=== PATIENT | female | born 1930 | race Caucasian/White ===

== ENCOUNTER → 2016-11-06 | Outpatient (CLI) | payer BC ==
[~2016-11-06] MED LIST: ACET-1311 PO; AMLO-110 PO; ASPCH81X PO; CALC500C70 PO; CARV3.122 PO; ETAN50IN2 SQ; ETAN50IN3 SQ; FLV1; FRS/40 PO; IBUP1CAP9 PO; IRBE1TAB48 PO; METH2.5T; MULT-845; SIMV10TA2 PO; TRAM-10 PO
--- NOTE | 2016-11-06 16:02 | MAMMOGRAPHY REPORT ---
BILATERAL DIGITAL SCREENING MAMMOGRAM WITH CAD: 11/06/2016 CLINICAL HISTORY: Routine screening. Patient has no complaints. TECHNIQUE: Bilateral CC and MLO views were obtained. Current study was also evaluated with a Compute r Aided Detection (CAD) system. COMPARISON: Comparison is made to exams dated: 10/27/2014 mammogram, 11/03/2015 mammogram, 09/15/2013 ma mmogram, 09/12/2012 mammogram, 09/11/2011 mammogram, and 09/05/2010 mammogram - [facility] er. BREAST COMPOSITION: There are scattered areas of fibroglandular density in both breasts. FINDINGS: There are mild vascular calcifications in both breasts. No suspicious mass, architectural distortion or cluster of microcalcifications is seen. IMPRESSION: ACR BI-RADS CATEGORY 2: BENIGN There is no mammographic evidence of malignancy. A 1 year screening mammogram is recommended. The pa tient will receive written notification of the results. Approximately 10% of breast cancers are not detected with mammography. A negative mammographic report should not delay biopsy if a clinically suggestive mass is present. Madhuri Klein M.D. ay/:11/06/2016 15:53:24 Refrigeration Service Inspector: Mabel LUCIA(R)(M), [facility] letter sent: Normal 1/2 BI-RADS Code: ACR BI-RADS Category 2: Benign
== END | disposition home or self-care (01) ==
LOC: C.MAMM 11:16
PROVIDERS: ATTEND Obstetrics & Gynecology
DX: Z12.31 Encounter for screening mammogram for malignant neoplasm of breast (principal)

== ENCOUNTER 2016-12-06 22:03 | Emergency (ER) | payer BC ==
[~2016-12-06] VITALS: Ht 167.6 cm; Wt 82.0 kg
[~2016-12-06 22:03] MED LIST changes: -ETAN50IN3 SQ; -IBUP1CAP9 PO
[2016-12-06 22:10] VITALS: TEMP 36.9; Ht 167.6 cm; Wt 82.0 kg
[2016-12-06] MEDS ORDERED: IBUP1CAP9 PO (22:21)
[2016-12-06] MEDS ORDERED: ETAN50IN3 SQ (22:21)
--- NOTE | 2016-12-06 22:29 | EMERGENCY ROOM VISIT NOTE ---
History Report prepared by Lisa: Nishi Choi Under the Supervision of: Dr. Lasha Moya M.D. First contact with patient: 22:17 Chief Complaint: FALL Stated Complaint: FALL/ LF KNEE & RT ELBOW PAIN History of Present Illness The patient is a 86 year old female who presents to the Emergency Room with complaints of an episode of a fall beginning just [employer]. The patient states that she was walking and her left knee gave out and she fell to the floor in her house. She reports that her knee sometimes gives out but it has never been this severe. She complains of severe left knee swelling and pain, a left elbow cut and left sided rib pain. The patient denies any new hip pain, head pain, shortness of breath, abdominal pain, new back pain, and loss of consciousness. She notes a history of rheumatoid arthritis and states that she takes 81mg aspirin a day but is not on any other blood thinners. She reports that she had an aortic valve replacement previously. Source of History: patient Onset: just [employer] Position: other (global) Quality: other (fall) Timing: constant Associated Symptoms: No LOC, No SOB, No abdominal pain, No back pain Note: Pt complains of left knee pain and swelling, left rib pain, and left elbow pain. The patient denies any new hip pain, head pain. Review of Systems See HPI for pertinent positives & negatives. A total of 10 systems reviewed and were otherwise negative. Past Medical & Surgical Medical Problems: (1) Rheumatoid aortitis Surgical Problems: (1) Aortic valve replaced Family History No pertinent family history stated. Social History Smoking Status: Never Smoker Marital Status: Housing Status: lives alone Occupation Status: retired Current/Historical Medications Scheduled Amlodipine (Norvasc), 5 MG PO DAILY Aspirin (Aspirin Chewable), 81 MG PO DAILY Calcium/Vitamin D (Os-Sourav 500 Plus D), 1 TAB PO BID Carvedilol (Coreg), 3.125 MG PO BID Etanercept (Enbrel Sureclick), 50 MG SQ WK Folic Acid (Folic Acid), 1 MG DAILY Ibuprofen (Ibuprofen), 200 MG PO QAM Irbesartan (Irbesartan), 150 MG PO DAILY Methotrexate (Methotrexate), 7.5 MG WK Multiple Vitamins W/ Minerals (Centrum Silver Adult 50+), DAILY Simvastatin (Zocor), 10 MG PO HS Scheduled PRN Furosemide (Lasix), 40 MG PO for EDEMA Allergies Coded Allergies: Penicillins (Unverified Allergy, Mild, rash, 12/06/16) Meperidine (Unverified Allergy, Unknown, ., 12/06/16) Rofecoxib (Unverified Allergy, Unknown, ., 12/06/16) Physical Exam Vital Signs Date Time Temp Pulse Resp B/P (MAP) Pulse Ox O2 Delivery O2 Flow Rate FiO2 12/07/16 02:10 71 18 156/96 99 Room Air 12/07/16 00:10 70 18 147/84 97 Room Air 12/06/16 22:10 36.9 72 18 165/88 94 Room Air Physical Exam GENERAL: Patient is well appearing and in no acute distress. HEENT: No acute trauma, normocephalic atraumatic, mucous membranes moist, no nasal congestion, no scleral icterus. NECK: No stridor, no adenopathy, no meningismus, trachea is midline. LUNGS: No dyspnea. Clear to auscultation and equal bilaterally. No wheeze, no rhonchi. HEART: Regular rate and rhythm. No rubs, gallops appreciated. Systolic Murmur appreciated. ABDOMEN: Soft, nontender, bowel sounds positive, no masses appreciated, no peritonitis. BACK: No midline tenderness, no CVA tenderness EXTREMITIES: Extensive swelling of the left anterior knee extending to mid left mathews, tender to palpation not consistent with compartment syndrome at this time , distal N/V intact, mild pain with ROM of left knee, skin tare of left olecranon with contusion and bruising, mild pain with ROM of left elbow. NEUROLOGIC: Alert and oriented, no acute motor or sensory deficits, no focal weakness, cranial nerves grossly intact. SKIN: No rash, no jaundice, no diaphoresis. Medical Decision & Procedures ER Provider Diagnostic Interpretation: X ray results are stated below per my interpretation. Elbow X-Ray: Degenerative changes, questionable lucency through distal medial humerus in single view, otherwise no fracture no dislocation. Left Knee X-Ray 2-View: Severe degenerative changes, no fracture, no dislocation. Tibia/Fibula X-Ray 2 View: Severe degenerative changes, no fracture, no dislocation. Laboratory Results 12/07/16 00:30 Red Blood Count 3.53, Mean Corpuscular Volume 95.8, Mean Corpuscular Hemoglobin 31.7, Mean Corpuscular Hemoglobin Concent 33.1, Mean Platelet Volume 10.5, Neutrophils (%) (Auto) 71.8, Lymphocytes (%) (Auto) 16.9, Monocytes (%) (Auto) 8.3, Eosinophils (%) (Auto) 2.5, Basophils (%) (Auto) 0.5, Neutrophils # (Auto) 5.63, Lymphocytes # (Auto) 1.33, Monocytes # (Auto) 0.65, Eosinophils # (Auto) 0.20, Basophils # (Auto) 0.04 12/07/16 00:30 Test 12/07/16 00:30 White Blood Count 7.85 K/uL (4.8-10.8) Red Blood Count 3.53 M/uL (4.2-5.4) Hemoglobin 11.2 g/dL (12.0-16.0) Hematocrit 33.8 % (37-47) Mean Corpuscular Volume 95.8 fL (80-100) Mean Corpuscular Hemoglobin 31.7 pg (25-34) Mean Corpuscular Hemoglobin Concent 33.1 g/dl (32-36) Platelet Count 196 K/uL (130-400) Mean Platelet Volume 10.5 fL (7.4-10.4) Neutrophils (%) (Auto) 71.8 % Lymphocytes (%) (Auto) 16.9 % Monocytes (%) (Auto) 8.3 % Eosinophils (%) (Auto) 2.5 % Basophils (%) (Auto) 0.5 % Neutrophils # (Auto) 5.63 K/uL (1.4-6.5) Lymphocytes # (Auto) 1.33 K/uL (1.2-3.4) Monocytes # (Auto) 0.65 K/uL (0.11-0.59) Eosinophils # (Auto) 0.20 K/uL (0-0.5) Basophils # (Auto) 0.04 K/uL (0-0.2) RDW Standard Deviation 47.3 fL (36.4-46.3) RDW Coefficient of Variation 13.8 % (11.5-14.5) Immature Granulocyte % (Auto) 0.0 % Immature Granulocyte # (Auto) 0.00 K/uL (0.00-0.02) Prothrombin Time 10.4 SECONDS (9.0-12.0) Prothromb Time International Ratio 1.0 (0.9-1.1) Activated Partial Thromboplast Time 27.4 SECONDS (21.0-31.0) Partial Thromboplastin Ratio 1.1 Anion Gap 6.0 mmol/L (3-11) Est Creatinine Clear Calc Drug Dose 58.7 ml/min Estimated GFR () 82.2 Estimated GFR (Non- 70.9 BUN/Creatinine Ratio 38.1 (10-20) Calcium Level 9.0 mg/dl (8.5-10.1) Total Creatine Kinase 48 U/L (26-192) Laboratory results as reviewed by me. Medications Administered Medications (Trade) Dose Ordered Sig/Bob Route Start Time Stop Time Status Last Admin Dose Admin Diphtheria/ Pertussis/Tetanus Vacc (Adacel Inj) 0.5 ml ONCE ONCE IM. 12/07/16 00:00 12/07/16 00:01 DC 12/07/16 00:33 0.5 ML ED Course 2217: The patient was evaluated in room C8. A complete history and physical exam was performed. 2358: I reevaluated the patient. Her hematoma has increased in size and it is more tender and painful. She is not able to move the knee and it is better with elevation. We had an extensive discussion about monitoring in hospital as there is concern for compartments syndrome. She has requested to go home but realized she cannot walk. She cannot remember when her last tetanus shot was but believes it was greater than 10 years ago. 0000: Adacel Inj 0.5ml IM. 0012: Discussed the patient's case with Dr. Wetzel. He is in agreement with the treatment plan and will evaluate the patient in the morning. 0130: Discussed the patient's case with Dr. Gonsalez of [facility]. The patient will be evaluated for further treatment and disposition. 0134: Upon reevaluation, the patient is doing well. Discussed results and treatment plan with the patient. She verbalized understanding and agreement with the treatment plan. The patient will be evaluated for further management. Medical Decision Medication Reconciliation: I attest that I have personally reviewed the patient 's current medication list. Blood pressure screening: Patient was found to have an elevated blood pressure likely due to the situation and was referred to their primary doctor for recheck and further treatment. 86 yr old female arrives following mechanical fall on to right knee. Moderate swelling thus imaging ordered. While here swelling increasing with increased pain. Improved with raising leg. Not yet to compartment syndrome but given increasing swelling I am concerned this may worsen. Not anatomically consistent with large arterial injury. Distal N/V is intact as well. HgB stable. She is essentially unable to ambulate given knee injury. She needs to have repeat knee evaluations to make sure does not develop in to compartment syndrome. She is willing to stay for further monitoring/observation. Declining pain meds as she gets very confused and constipated on them. After several hours in ed with leg elevated patient notes she is now able to ambulate to bathroom. Swelling improved. She very much wishes to go home. She does not have compartment syndrome at this time. She understands the dangers of going home if swelling increasing, also if fall due to leg being injured. Has walker at home which I advised she use. Follow up with PCP though is aware she can return at any time if worsening or other concerns. Consults Time Called: 9 Consulting Physician: Dr. Wetzel - Orthopedics Returned Call: [phone] Discussed the patient's case with Dr. Wetzel. He is in agreement with the treatment plan and will evaluate the patient in the morning. Additional Consults: Time Called: 012 Consulted Physician: Dr. Wallace Aleman Returned Call: 013 Additional Comments: Discussed the patient's case with Dr. Gonsalez of [facility]. The patient will be evaluated for further treatment and disposition. Impression Primary Impression: Traumatic hematoma of left knee Additional Impressions: Abrasion of elbow, left Aphysavzbm-oqyeide-fmactludt (DTP) vaccination Scribe Attestation The scribe's documentation has been prepared under my direction and personally reviewed by me in its entirety. I confirm that the note above accurately reflects all work, treatment, procedures, and medical decision making performed by me. Departure Information Dispostion Being Evaluated By Hospitalist Referrals No Doctor, Assigned (PCP) Patient Instructions ED Hematoma, My [facility] Additional Instructions Keep leg elevated. Apply ice several times daily next few days. Return if severe pain, discoloration of leg, or other concerns. We are always here to help. Follow up with your primary care provider for further evaluation. Problem Qualifiers
[2016-12-07] MEDS ORDERED: DIPHTHERIA/TETANUS/PERTUSSIS 0.5 ML SYR/VIAL IM. ONE
[2016-12-07 00:38] LABS: BASO % 0.5 %; BASO ABS # 0.04 K/uL (0-0.2); COMPLETE YES; EOS % 2.5 %; HEMATOCRIT 33.8 % (37-47); LYMPH % 16.9 %; LYMPH ABS # 1.33 K/uL (1.2-3.4); MEAN CELL VOLUME 95.8 fL (80-100); MEAN CORPUSCULAR HEMOGLOBIN 31.7 pg (25-34); MEAN CORPUSCULAR HGB CONC 33.1 g/dl (32-36); MEAN PLATELET VOLUME 10.5 fL (7.4-10.4); MONO % 8.3 %; NEUT % 71.8 %; PLATELET COUNT 196 K/uL (130-400); RED BLOOD COUNT 3.53 M/uL (4.2-5.4); WHITE BLOOD COUNT 7.85 K/uL (4.8-10.8)
[2016-12-07 00:47] LABS: PARTIAL THROMBOPLASTIN RATIO 1.1; PROTHROMBIN TIME (PATIENT) 10.4 SECONDS (9.0-12.0)
[2016-12-07 01:04] LABS: BUN/CREATININE RATIO 38.1 (10-20); CREATININE 0.77 mg/dl (0.60-1.20); POTASSIUM 3.9 mmol/L (3.5-5.1)
[2016-12-07] MEDS ORDERED: ACETAMINOPHEN 325 MG TAB PO PRN (01:45)
[2016-12-07] MEDS ORDERED: ALUMINUM/MAGNESIUM/SIMETH (MAALOX MAX) 30 ML UDC PO PRN (01:45)
[2016-12-07] MEDS ORDERED: HEPARIN SOD 5000 UNIT/0.5 ML CARP SQ SCH (01:45)
[2016-12-07] MEDS ORDERED: ONDANSETRON INJ 2 MG/ML 2 ML VIAL IV PRN (01:45)
[2016-12-07] MEDS ORDERED: MAGNESIUM HYDROXIDE SUSP 30 ML UDC PO PRN (01:45)
[2016-12-07] MEDS ORDERED: POLYETHYLENE (MIRALAX) 17 GM PACK PO PRN (01:45)
[2016-12-07 02:10] VITALS: BP 156/96; PULSE 71; O2SAT 99
[2016-12-07] MEDS ORDERED: IV FLUIDS COMPLETED PRN (03:45)
--- NOTE | 2016-12-07 06:38 | DIAGNOSTIC IMAGING REPORT ---
LEFT ELBOW MIN 3 VIEWS ROUTINE CLINICAL HISTORY: left elbow swelling/bruising s/p fall trauma. Pain. COMPARISON: None. DISCUSSION: The bones and joint spaces appear intact. There is no evidence of fracture, dislocation or bony disease. There is no evidence for soft tissue swelling. IMPRESSION: Negative study. Electronically signed by: Felipe Villa M.D. 12/07/2016 6:37 AM Dictated Date/Time: 12/07/2016 6:36 AM
--- NOTE | 2016-12-07 06:40 | DIAGNOSTIC IMAGING REPORT ---
LEFT KNEE 1 OR 2 VIEWS ROUTINE CLINICAL HISTORY: left knee swelling/bruising s/p fall trauma. Pain. COMPARISON: None. DISCUSSION: Degenerative change of all major joint compartments is noted. Suprapatellar calcification is present considered chronic. Mild prepatellar soft tissue edema. No acute bony abnormality. There is no evidence for soft tissue swelling. IMPRESSION: Degenerative change. Soft tissue edema. Loose body versus synovial calcification suprapatellar bursa. Electronically signed by: Felipe Villa M.D. 12/07/2016 6:38 AM Dictated Date/Time: 12/07/2016 6:37 AM
--- NOTE | 2016-12-07 06:41 | DIAGNOSTIC IMAGING REPORT ---
LEFT TIBIA/FIBULA 2 VIEWS ROUTINE CLINICAL HISTORY: left lower leg swelling/bruising s/p fall trauma. Pain. COMPARISON: None. DISCUSSION: The bones and joint spaces appear intact. There is no evidence of fracture, dislocation or bony disease. There is no evidence for soft tissue swelling. IMPRESSION: Negative study. Electronically signed by: Felipe Villa M.D. 12/07/2016 6:39 AM Dictated Date/Time: 12/07/2016 6:39 AM
[2016-12-07] MEDS ORDERED: IRBESARTAN 150 MG TAB PO SCH (09:00)
[2016-12-07] MEDS ORDERED: AMLODIPINE BESYLATE 5 MG TAB PO SCH (09:00)
[2016-12-07] MEDS ORDERED: CARVEDILOL 3.125 MG TAB PO SCH (09:00)
[2016-12-07] MEDS ORDERED: ASPIRIN 81 MG ECTAB PO SCH (09:00)
[2016-12-07] MEDS ORDERED: SIMVASTATIN 10 MG TAB PO SCH (21:00)
== END 2016-12-07 02:40 | disposition home or self-care (01) ==
LOC: EDBD 22:03 → C.EDC 22:03 → CANRESERV 12-07 02:33 → ENRESERV 12-07 02:33 → CANBEDREQ 12-07 02:39 → C.EDC 12-07 02:40
DX: S80.02XA Contusion of left knee, initial encounter (principal); S50.312A Abrasion of left elbow, initial encounter; W19.XXXA Unspecified fall, initial encounter; Y92.019 Unspecified place in single-family (private) house as the place of occurrence of the external cause; Z23 Encounter for immunization; I35.9 Nonrheumatic aortic valve disorder, unspecified; I77.6 Arteritis, unspecified; Z79.82 Long term (current) use of aspirin; Z79.899 Other long term (current) drug therapy; Z88.0 Allergy status to penicillin; Z88.8 Allergy status to other drugs, medicaments and biological substances

== ENCOUNTER → 2016-12-11 | Outpatient (CLI) | payer BC ==
[~2016-12-11] MED LIST changes: -ACET-1311 PO; -ETAN50IN2 SQ; +ETAN50IN3 SQ; +IBUP1CAP9 PO; -TRAM-10 PO
[2016-12-11 15:03] LABS: BASO % 0.9 %; BASO ABS # 0.07 K/uL (0-0.2); COMPLETE YES; HEMATOCRIT 31.8 % (37-47); IG% 0.1 %; LYMPH % 15.6 %; LYMPH ABS # 1.28 K/uL (1.2-3.4); MEAN CELL VOLUME 99.1 fL (80-100); MEAN CORPUSCULAR HEMOGLOBIN 32.4 pg (25-34); MEAN CORPUSCULAR HGB CONC 32.7 g/dl (32-36); MEAN PLATELET VOLUME 11.8 fL (7.4-10.4); NEUT % 70.4 %; PLATELET COUNT 195 K/uL (130-400); RED BLOOD COUNT 3.21 M/uL (4.2-5.4); WHITE BLOOD COUNT 8.23 K/uL (4.8-10.8)
[2016-12-11 15:28] LABS: ALT/SGPT 20 U/L (12-78); AST/SGOT 16 U/L (15-37); BLOOD UREA NITROGEN 26 mg/dl (7-18); BUN/CREATININE RATIO 26.3 (10-20); CARBON DIOXIDE 26 mmol/L (21-32); CHLORIDE 108 mmol/L (98-107); GLUCOSE 98 mg/dl (70-99); POTASSIUM 4.1 mmol/L (3.5-5.1); SODIUM 141 mmol/L (136-145)
[2016-12-11 15:30] LABS: ALB/GLOB RATIO 0.9 (0.9-2); ALKALINE PHOSPHATASE 86 U/L (45-117)
== END | disposition home or self-care (01) ==
LOC: C.LABBC 10:13
PROVIDERS: ATTEND Family Medicine
DX: M06.09 Rheumatoid arthritis without rheumatoid factor, multiple sites (principal)

== ENCOUNTER → 2016-12-16 | Outpatient (CLI) | payer BC ==
[2016-12-16 14:48] LABS: BASO % 0.5 %; BASO ABS # 0.03 K/uL (0-0.2); COMPLETE YES; EOS % 1.8 %; IG% 0.2 %; IMMATURE RETIC FRACTION 13.4 % (3.0-15.9); LYMPH % 16.7 %; LYMPH ABS # 1.02 K/uL (1.2-3.4); MEAN CELL VOLUME 96.6 fL (80-100); MEAN CORPUSCULAR HEMOGLOBIN 31.2 pg (25-34); MEAN CORPUSCULAR HGB CONC 32.3 g/dl (32-36); MEAN PLATELET VOLUME 10.3 fL (7.4-10.4); MONO % 10.3 %; NEUT % 70.5 %; PLATELET COUNT 243 K/uL (130-400); RED BLOOD COUNT 3.21 M/uL (4.2-5.4); RETHE 24.9 PG (28.2-36.6); WHITE BLOOD COUNT 6.12 K/uL (4.8-10.8)
--- NOTE | 2016-12-27 08:01 | CODING QUERY MEDICAL NECESSITY ---
CQSUPPORTING DIAGNOSIS NEEDED A supporting diagnosis is required for the test/procedure performed on this patient in order for us to be reimbursed by the patient's insurance. Please provide a supporting diagnosis for the following test/procedure listed below next to the test name along with your signature. *If there is no additional diagnosis for this patient that would support the following test/procedure please document that below next to the test/procedure. Test(s)/Procedure(s) that require a supporting diagnosis: DOS 12/16/16 VITAMIN B12 TEST FOLIC ACID TEST Provider Signature: Date: Thank you Kenia Mantilla Health Information Management Once completed, please kindly fax back to [phone] For questions please call [phone]
== END | disposition home or self-care (01) ==
LOC: C.LAB 13:32
PROVIDERS: ATTEND Family Medicine
DX: D64.9 Anemia, unspecified (principal)

== ENCOUNTER → 2017-01-19 | Outpatient (CLI) | payer BC ==
[2017-01-19 13:45] LABS: HEMATOCRIT 34.9 % (37-47); MEAN CELL VOLUME 96.9 fL (80-100); MEAN CORPUSCULAR HEMOGLOBIN 31.7 pg (25-34); MEAN CORPUSCULAR HGB CONC 32.7 g/dl (32-36); WHITE BLOOD COUNT 6.82 K/uL (4.8-10.8)
[2017-01-19 13:49] LABS: BLOOD UREA NITROGEN 21 mg/dl (7-18); BUN/CREATININE RATIO 21.8 (10-20); CALCIUM 8.9 mg/dl (8.5-10.1); CARBON DIOXIDE 27 mmol/L (21-32); CHLORIDE 109 mmol/L (98-107); CREATININE 0.97 mg/dl (0.60-1.20); GLUCOSE 91 mg/dl (70-99); POTASSIUM 4.4 mmol/L (3.5-5.1); SODIUM 141 mmol/L (136-145)
[2017-01-19 13:51] LABS: MEAN PLATELET VOLUME 11.7 fL (7.4-10.4); PLATELET COUNT 178 K/uL (130-400)
[2017-01-19 13:54] LABS: BASO % 0.6 %; BASO ABS # 0.04 K/uL (0-0.2); COMPLETE YES; EOS % 2.2 %; IG% 0.1 %; LYMPH % 17.9 %; LYMPH ABS # 1.22 K/uL (1.2-3.4); MONO % 6.7 %; NEUT % 72.5 %
== END | disposition home or self-care (01) ==
LOC: C.LABBC 11:51
PROVIDERS: ATTEND Internal Medicine Hematology
DX: D64.9 Anemia, unspecified (principal)

== ENCOUNTER → 2017-09-07 | Outpatient (CLI) | payer BC | END | disposition home or self-care (01) | LOC: C.LABBC 09:13 | PROVIDERS: ATTEND Family Medicine | DX: Z13.220 Encounter for screening for lipoid disorders (principal); Z13.1 Encounter for screening for diabetes mellitus ==

== ENCOUNTER 2017-10-13 18:59 | Emergency (ER) | payer BC ==
[~2017-10-13] VITALS: Ht 165.1 cm; Wt 85.5 kg
[2017-10-13 19:01] VITALS: TEMP 36.7; Ht 165.1 cm; Wt 85.5 kg
--- NOTE | 2017-10-13 19:30 | EMERGENCY ROOM VISIT NOTE ---
History Report prepared by Lisa: Francis Jackson Under the Supervision of: Dr. Lasha Moya M.D. First contact with patient: 19:05 Chief Complaint: CARDIAC ASSESSMENT Stated Complaint: DISCOMFORT R SIDE OF BREAST/UNDERARM/CHEST DISCOM History of Present Illness The patient is a 87 year old female who presents to the Emergency Room with complaints of constant left-sided chest pain that began last night when she was going to bed. Patient describe the pain as soreness and "heaviness". She states that she took an antacid but it did not relieve the symptoms. Patient states that she has shortness of breath. Patient adds that she does not have an appetite. She adds that she has chronic knee pain. 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 Pertinent past surgical history includes an aortic aneurysm surgery. She adds that she had an Echo done 2 years ago which showed another aneurysm. She states that she takes Aspirin daily. She denies taking any blood thinner medications. She denies a history of heart failure and heart attack. Source of History: patient Onset: Last night Position: chest (left) Quality: other (Soreness and heaviness) Timing: constant Modifying Factors (Relieving): other (None) Associated Symptoms: + SOB Review of Systems See HPI for pertinent positives & negatives. A total of 10 systems reviewed and were otherwise negative. Past Medical & Surgical Medical Problems: (1) Rheumatoid aortitis Surgical Problems: (1) Aortic valve replaced Family History Omitted secondary to age. Social History Smoking Status: Never Smoker Marital Status: Housing Status: lives alone Occupation Status: retired Current/Historical Medications Scheduled Amlodipine (Norvasc), 2.5 MG PO DAILY Aspirin (Aspirin Chewable), 81 MG PO DAILY Calcium/Vitamin D (Os-Sourav 500 Plus D), 1 TAB PO BID Carvedilol (Coreg), 3.125 MG PO BID Etanercept (Enbrel Sureclick), 50 MG SQ WK Folic Acid (Folic Acid), 1 MG DAILY Irbesartan (Irbesartan), 150 MG PO DAILY Methotrexate (Methotrexate), 7.5 MG WK Multiple Vitamins W/ Minerals (Centrum Silver Adult 50+), DAILY Prednisone (Prednisone), 5 MG PO DAILY Simvastatin (Zocor), 10 MG PO HS Scheduled PRN Furosemide (Lasix), 40 MG PO for EDEMA Allergies Coded Allergies: Penicillins (Unverified Allergy, Mild, rash, 10/13/17) Meperidine (Unverified Allergy, Unknown, ., 10/13/17) Rofecoxib (Unverified Allergy, Unknown, ., 10/13/17) Physical Exam Vital Signs Date Time Temp Pulse Resp B/P (MAP) Pulse Ox O2 Delivery O2 Flow Rate FiO2 10/13/17 22:19 0 10/13/17 22:14 48 10/13/17 21:43 93 16 198/125 95 Room Air 10/13/17 20:41 62 16 150/89 98 Room Air 10/13/17 20:14 89 16 159/106 95 Room Air 10/13/17 19:20 83 10/13/17 19:01 36.7 96 20 148/100 97 Room Air Physical Exam GENERAL: Patient is tired appearing and uncomfortable. EYES: No scleral icterus, unremarkable pupils. ENT: Mucous membranes moist, no nasal congestion. NECK: No masses appreciated, no meningismus, trachea is midline. RESPIRATORY: Dyspneic/tachypneic with diffuse crackles in all lung harman. No wheeze, no rhonchi. CARDIOVASCULAR: Mildly tachycardic rate and rhythm. Systolic murmur. No rubs or gallops appreciated. GASTROINTESTINAL: Abdomen soft, nontender, no peritonitis. Bowel sounds positive. No masses appreciated. BACK: No midline tenderness, no CVA tenderness EXTREMITIES: Normal motion all extremities, no cyanosis, no edema. NEUROLOGIC: Alert and oriented, no acute motor or sensory deficits, no focal weakness, cranial nerves grossly intact. SKIN: No rash, no jaundice, no diaphoresis. Medical Decision & Procedures ER Provider Diagnostic Interpretation: Radiology results and stated below per my review and radiologist interpretation: CHEST ONE VIEW PORTABLE HISTORY: 87 years-old Female Chest Pain acute atypical chest pain COMPARISON: Chest radiograph 08/19/2013 TECHNIQUE: Portable AP view of the chest FINDINGS: Prior median sternotomy. Tortuosity of the thoracic aorta with mediastinal widening is noted, progressed from comparison study 08/19/2013. Opacity of the left lung base suggest mixture of prominent epicardial fat pad with atelectasis. The lungs are mildly hyperinflated. No pneumothorax or overt pulmonary edema. Degenerative changes of the shoulders and spine. IMPRESSION: Tortuosity of the thoracic aorta with mediastinal widening suggests thoracic aortic aneurysm. The above report was generated using voice recognition software. It may contain grammatical, syntax or spelling errors. Electronically signed by: Demarco Antony M.D. 10/13/2017 7:38 PM Laboratory Results 10/13/17 19:24 Red Blood Count 4.03, Mean Corpuscular Volume 94.5, Mean Corpuscular Hemoglobin 32.8, Mean Corpuscular Hemoglobin Concent 34.6, Mean Platelet Volume 9.9, Neutrophils (%) (Auto) 77.7, Lymphocytes (%) (Auto) 10.4, Monocytes (%) (Auto) 11.4, Eosinophils (%) (Auto) 0.1, Basophils (%) (Auto) 0.2, Neutrophils # (Auto ) 7.77, Lymphocytes # (Auto) 1.04, Monocytes # (Auto) 1.14, Eosinophils # (Auto ) 0.01, Basophils # (Auto) 0.02 10/13/17 19:24 Test 10/13/17 19:24 White Blood Count 10.00 K/uL (4.8-10.8) Red Blood Count 4.03 M/uL (4.2-5.4) Hemoglobin 13.2 g/dL (12.0-16.0) Hematocrit 38.1 % (37-47) Mean Corpuscular Volume 94.5 fL (80-100) Mean Corpuscular Hemoglobin 32.8 pg (25-34) Mean Corpuscular Hemoglobin Concent 34.6 g/dl (32-36) Platelet Count 187 K/uL (130-400) Mean Platelet Volume 9.9 fL (7.4-10.4) Neutrophils (%) (Auto) 77.7 % Lymphocytes (%) (Auto) 10.4 % Monocytes (%) (Auto) 11.4 % Eosinophils (%) (Auto) 0.1 % Basophils (%) (Auto) 0.2 % Neutrophils # (Auto) 7.77 K/uL (1.4-6.5) Lymphocytes # (Auto) 1.04 K/uL (1.2-3.4) Monocytes # (Auto) 1.14 K/uL (0.11-0.59) Eosinophils # (Auto) 0.01 K/uL (0-0.5) Basophils # (Auto) 0.02 K/uL (0-0.2) RDW Standard Deviation 51.1 fL (36.4-46.3) RDW Coefficient of Variation 14.8 % (11.5-14.5) Immature Granulocyte % (Auto) 0.2 % Immature Granulocyte # (Auto) 0.02 K/uL (0.00-0.02) Anion Gap 3.0 mmol/L (3-11) Est Creatinine Clear Calc Drug Dose 43.5 ml/min Estimated GFR () 58.1 Estimated GFR (Non- 50.1 BUN/Creatinine Ratio 22.2 (10-20) Calcium Level 9.6 mg/dl (8.5-10.1) Magnesium Level 2.1 mg/dl (1.8-2.4) Total Bilirubin 2.4 mg/dl (0.2-1) Direct Bilirubin 0.4 mg/dl (0-0.2) Aspartate Amino Transf (AST/SGOT) 20 U/L (15-37) Alanine Aminotransferase (ALT/SGPT) 22 U/L (12-78) Alkaline Phosphatase 89 U/L (45-117) Total Creatine Kinase 44 U/L (26-192) Creatine Kinase MB 1.3 ng/ml (0.5-3.6) Creatine Kinase MB Ratio 3.0 (0-3.0) Troponin I < 0.015 ng/ml (0-0.045) Pro-B-Type Natriuretic Peptide 833 pg/ml (0-1800) Total Protein 7.5 gm/dl (6.4-8.2) Albumin 3.6 gm/dl (3.4-5.0) Lipase 93 U/L (73-393) Laboratory results as reviewed by me. Medications Administered Medications (Trade) Dose Ordered Sig/Bob Route Start Time Stop Time Status Last Admin Dose Admin Nitroglycerin (Nitrostat Tab) 0.4 mg Q5M PRN SL 10/13/17 19:15 11/12/17 19:14 10/13/17 21:29 0.4 MG Fentanyl Citrate (Fentanyl Inj) 25 mcg NOW STAT IV 10/13/17 21:34 10/13/17 21:35 DC 10/13/17 21:42 25 MCG Morphine Sulfate (MoRPHine SULFATE INJ) 10 mg STK-MED ONCE .ROUTE 10/13/17 22:00 10/13/17 22:01 DC 10/13/17 22:00 6 MG ECG Per My Interpretation Indication: chest pain Rate (beats per minute): 90 Rhythm: sinus rhythm Findings: PAC, no acute ischemic change, prolonged QT (QTc = 425) ED Course 1907: The patient was evaluated in room A3. A complete history and physical exam was performed. 1941: I reassessed the patient. She is awaiting nitroglycerin. I discussed giving her a CT scan of her chest which she is agreeable to once her labs have returned. 2020: I reassessed the patient. I once again requested that the nursing staff administer the patient the nitroglycerin that was ordered to be given. The first dose is now being given. 2025: Patient is stable. She awaiting going to CT scan. 2034: Patient states that she has mild improvement after the sublingual nitroglycerin tablet. She adds that the more she thinks about she feels like her symptoms got better after taking the antacid. Multiple re-evaluations throughout this from 2034 until 2204 when patient was declared . 22:05 Patient . Medical Decision Differential: Cardiac Ischemia (STEMI, NSTEMI, Unstable Angina, etc), Aortic Dissection, Arrhythmia, Pulmonary Embolism, Pneumonia, Pneumothorax, MSK, Infectious, Pericarditis/Myocarditis, Esophageal Rupture, Gastrointestinal, amongst other pathologies entertained. 87 yr old female arrives for evaluation of substernal chest pain that initially was left sided. This has been on and off over last few days gradually worsening. Notes mild improvement with zantac at home and that she may have had some improvement with SLNTG while here. Modest HTN throughout without significant findings on EKG. She has CXR on arrival with quite large mediastinum, though she is stating known aneurysm which persisted despite aneurysmal ascending repair and aortic repair 4 years ago. She is not complaining of tearing nor significant pain radiating to back on arrival, however with her history and CXR felt that CTA clearly necessary and thus with normal renal function went ahead with imaging. CTA Shows a very large aortic aneurysm with loly B dissection very extensive. Given her symptoms were not that severe initially this was quite a surprising finding and patient immediately evaluated again. She was evaluated with HR in 80-90, and BP 150/90 on this examination. She notes that she absolutely does not want any surgery. She also makes it clear that she has no wish to be transferred to [facility]. Also she makes clear she is DNR. Family at bedside witnessed this. Discussed with Dr Strauss of ICU and plan was to start cardizem and admit to ICU for medical management of this, but knowledge that she could worsen at any time and pass away. Just a few minutes after this conversation I was called emergently to the room. Patient was pale, unresponsive with agonal respirations, noted to he bradycardic. Very faint pulse. Given she was having agonal respirations and was clearly in act of dieing she was given a small dose morphine for air hunger and pain (suspect might be having worsening dissection). Patient with tomb stones on monitor thus I suspect this was either bleed out and developed NH , primary NH or more likely dissection up to coronaries. She went in to [facility] just shortly there after at 20:05 and was declared . Patient's daughter and grandchildren were at bedside and all questions that I could were answered. I did discuss cause with pts granddaughter, Jo-Ann, who is a physician , over the phone as well. I had several discussions with family after this while in room and bereavement room. Head Trauma GCS Score: 15 Medication Reconcilliation Current Medication List: was personally reviewed by me Blood Pressure Screening Patient's blood pressure: Elevated blood pressure Impression Primary Impression: Aortic dissection, thoracoabdominal Additional Impression: Cardiac arrest Scribe Attestation The scribe's documentation has been prepared under my direction and personally reviewed by me in its entirety. I confirm that the note above accurately reflects all work, treatment, procedures, and medical decision making performed by me. Departure Information Dispostion Being Evaluated By Hospitalist Referrals Brad Gracia M.D.([facility]) (PCP) Forms IMPORTANT VISIT INFORMATION Patient Instructions [facility] Problem Qualifiers
[2017-10-13 19:34] LABS: BASO % 0.2 %; BASO ABS # 0.02 K/uL (0-0.2); EOS % 0.1 %; EOS ABS # 0.01 K/uL (0-0.5); HEMATOCRIT 38.1 % (37-47); HEMOGLOBIN 13.2 g/dL (12.0-16.0); IG# 0.02 K/uL (0.00-0.02); LYMPH % 10.4 %; LYMPH ABS # 1.04 K/uL (1.2-3.4); MEAN CELL VOLUME 94.5 fL (80-100); MEAN CORPUSCULAR HEMOGLOBIN 32.8 pg (25-34); MEAN CORPUSCULAR HGB CONC 34.6 g/dl (32-36); MEAN PLATELET VOLUME 9.9 fL (7.4-10.4); MONO % 11.4 %; MONO ABS # 1.14 K/uL (0.11-0.59); NEUT % 77.7 %; NEUT ABS # 7.77 K/uL (1.4-6.5); PLATELET COUNT 187 K/uL (130-400); RED CELL DISTRIBUTION WIDTH CV 14.8 % (11.5-14.5); RED CELL DISTRIBUTION WIDTH SD 51.1 fL (36.4-46.3)
--- NOTE | 2017-10-13 19:40 | DIAGNOSTIC IMAGING REPORT ---
CHEST ONE VIEW PORTABLE HISTORY: 87 years-old Female Chest Pain acute atypical chest pain COMPARISON: Chest radiograph 08/19/2013 TECHNIQUE: Portable AP view of the chest FINDINGS: Prior median sternotomy. Tortuosity of the thoracic aorta with mediastinal widening is noted, progressed from comparison study 08/19/2013. Opacity of the left lung base suggest mixture of prominent epicardial fat pad with atelectasis. The lungs are mildly hyperinflated. No pneumothorax or overt pulmonary edema. Degenerative changes of the shoulders and spine. IMPRESSION: Tortuosity of the thoracic aorta with mediastinal widening suggests thoracic aortic aneurysm. The above report was generated using voice recognition software. It may contain grammatical, syntax or spelling errors. Electronically signed by: Demarco Antony M.D. 10/13/2017 7:38 PM Dictated Date/Time: 10/13/2017 7:36 PM
[2017-10-13 20:04] LABS: BLOOD UREA NITROGEN 23 mg/dl (7-18); CALCIUM 9.6 mg/dl (8.5-10.1); CARBON DIOXIDE 29 mmol/L (21-32); CREATININE 1.02 mg/dl (0.60-1.20); GLUCOSE 120 mg/dl (70-99); POTASSIUM 4.3 mmol/L (3.5-5.1); SODIUM 135 mmol/L (136-145)
[2017-10-13 20:09] LABS: CKMB 1.3 ng/ml (0.5-3.6)
[2017-10-13] MEDS: NITROGLYCERIN 0.4 MG SL PER TAB CHARGE SL PRN ×2 (20:18→21:29)
[2017-10-13] MEDS ORDERED: OPTIRAY 320 IV PRN (20:45)
[2017-10-13 21:02] LABS: ALBUMIN 3.6 gm/dl (3.4-5.0); TOTAL PROTEIN 7.5 gm/dl (6.4-8.2)
--- NOTE | 2017-10-13 21:17 | DIAGNOSTIC IMAGING REPORT ---
(CHEST FOR PE) ANGIO WITH CT DOSE: 448.71 mGy.cm HISTORY: 87 years-old Female presents with acute chest pain and shortness of breath TECHNIQUE: Multiple CTA images of the chest were obtained after the intravenous administration of 95 ml Optiray 320. Coronal and sagittal MIPS were obtained from the axial data set and were submitted for review. A dose lowering technique was utilized adhering to the principles of ALARA. COMPARISON: Chest radiograph 10/13/2017 and 08/19/2013 FINDINGS: CTA: Moderate multichamber cardiac enlargement without pericardial effusion. Prior median sternotomy and coronary arterial calcifications are noted. Surgical clips are noted near the left main coronary artery. Fusiform aneurysmal dilation of the ascending thoracic aorta measures 6.6 x 6.7 cm in AP and transverse dimension. There is mild to moderate degree of mixed plaquing about the thoracic aorta. Left vertebral artery emanates strictly from the aortic arch. The imaged great vessels appear to be patent. Dissection of the thoracic aorta extends from the aortic isthmus, distal to the origin of the left subclavian artery extending through the descending thoracic aorta and appearing to terminate just proximal to the diaphragmatic hiatus, however the distal most thoracic and proximal abdominal aorta are not well opacified. Pulmonary arterial tree is opacified to level of the subsegmental branches and demonstrates no focal filling defects to suggest pulmonary thromboembolic disease. Mild respiratory motion limits evaluation of the subsegmental segments. CT CHEST: Mild biapical pleural-parenchymal scarring. Trace left pleural effusion. Subsegmental linear consolidative and groundglass opacities of the lung bases suggest atelectasis/scarring. No suspicious pulmonary nodules or masses. Minimal tree-in-bud nodularity in a subpleural distribution is noted within the right upper lobe. Central airways are patent. No acute process of the imaged upper abdomen. Cholelithiasis without CT evidence of acute cholecystitis. Soft tissues are unremarkable. Bones appear intact. Multilevel degenerative changes about the spine. IMPRESSION: 1. Large fusiform aneurysm dilation of the ascending thoracic aorta measures up to 6.6 x 6.7 cm. Additionally, there is a [place] type B thoracic aortic dissection extending from the aortic isthmus through the distal descending thoracic aorta and possibly into the abdominal aorta. 2. No evidence of pulmonary thromboembolic disease. 3. Cardiomegaly with prior median sternotomy. 4. Minimal peripheral distribution of tree-in-bud nodules in the right upper lobe suggests infectious bronchiolitis. 5. Cholelithiasis without CT evidence of acute cholecystitis. The above report was generated using voice recognition software. It may contain grammatical, syntax or spelling errors. Electronically signed by: Demarco Antony M.D. 10/13/2017 9:16 PM Dictated Date/Time: 10/13/2017 9:08 PM
[2017-10-13] MEDS ORDERED: PRED-301 PO (21:24)
[2017-10-13] MEDS ORDERED: AMLO2.5T PO (21:24)
[2017-10-13] MEDS ORDERED: FENTANYL CITRATE INJ 50 MCG/1 ML 2 ML VIAL IV STA (21:34)
[2017-10-13 21:43] VITALS: BP 198/125; O2SAT 95
[2017-10-13] MEDS ORDERED: NiCARDipine IV 25 MG in SODIUM CHLORIDE 0.9% 250ML 240 ML IV STA (21:45)
[2017-10-13] MEDS ORDERED: NiCARDipine IV 25 MG in SODIUM CHLORIDE 0.9% 250ML 240 ML IV PRN (22:00)
[2017-10-13] MEDS ORDERED: MoRPHine SULFATE 10 MG/ML CARP/VIAL ONE (22:00)
[2017-10-13 22:19] VITALS: PULSE 0
== END 2017-10-13 22:55 | disposition expired ==
LOC: C.EDB 19:00 → C.EDA 22:55
DX: I71.03 Dissection of thoracoabdominal aorta (principal); I46.9 Cardiac arrest, cause unspecified; I09.89 Other specified rheumatic heart diseases; R01.1 Cardiac murmur, unspecified; I10 Essential (primary) hypertension; I25.3 Aneurysm of heart; Z95.2 Presence of prosthetic heart valve; Z79.82 Long term (current) use of aspirin; Z79.899 Other long term (current) drug therapy; Z88.0 Allergy status to penicillin; Z88.5 Allergy status to narcotic agent; Z88.6 Allergy status to analgesic agent